=== PATIENT | male | born 1990 | race Two or more races ===

== ENCOUNTER 2024-09-30 18:34 | Emergency (ER) | payer OTHER ==
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
[2024-09-30 18:39] LABS: Glucose,Whole Blood 114 mg/dL (70-110)
[2024-09-30 18:42] VITALS: PULSE 75
[2024-09-30 18:50] LABS: Basophils # (A) 0.02 10*3/uL (0.00-0.10); Basophils % (A) 0.2 %; Eosinophils # (A) 0.20 10*3/uL (0.04-0.35); Eosinophils % (A) 2.2 %; HCT 45.0 % (39.6-50.0); HGB 15.6 g/dL (13.0-17.0); Lymphocytes # (A) 2.17 10*3/uL (0.90-5.00); Lymphocytes % (A) 23.4 %; MCH 29.9 pg (27.0-32.0); MCHC 34.7 g/dL (32.0-37.0); MCV 86.4 fL (80.0-97.0); Monocytes # (A) 0.56 10*3/uL (0.20-1.00); Monocytes % (A) 6.0 %; Neutrophils # (A) 6.30 10*3/uL (1.80-7.70); Neutrophils % (A) 68.0 %; Platelet Count 235 10*3/uL (140-440); RBC 5.21 10*6/uL (4.40-5.60); RDW 12.6 % (11.5-14.5); WBC 9.27 10*3/uL (4.50-10.00)
[2024-09-30 19:06] LABS: INR 0.9 (<1.2); Partial Thromboplastin Time 23.4 sec (22.0-30.0); Prothrombin Time 10.3 sec (10.0-12.5)
[2024-09-30 19:07] LABS: ALT 147 U/L (4-49); AST 85 U/L (17-59); African American GFR (CKD) >90 (>60 ml/min/1.73 sqM); Albumin 4.6 g/dL (3.5-5.0); Alkaline Phosphatase 91 U/L (38-126); Anion Gap 12 mmol/L; Blood Urea Nitrogen 16 mg/dL (9-20); Calcium 10.0 mg/dL (8.4-10.2); Carbon Dioxide 27 mmol/L (22-30); Chloride 104 mmol/L (98-107); Glucose 106 mg/dL (74-99); Non-African American GFR(CKD) >90 (>60 ml/min/1.73 sqM); Potassium 4.4 mmol/L (3.5-5.1); Sodium 143 mmol/L (137-145); Total Protein 7.4 g/dL (6.3-8.2)
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
[2024-09-30 19:51] LABS: Bilirubin,Urine Negative (Negative); Blood,Urine Negative (Negative); Color,Urine Colorless; Glucose,Urine (UA) Negative (Negative); Ketones,Urine Negative (Negative); Leukocyte Esterase,Urine Negative (Negative); Nitrite,Urine Negative (Negative); PH, Urine 6.5 (5.0-8.0); Protein,Urine Negative (Negative); Specific Gravity,Urine 1.022 (1.001-1.035); Urobilinogen,Urine <2.0 mg/dL (<2.0)
[2024-09-30 20:04] LABS: Barbiturate Screen,Urine Not Detected (NotDetected); Benzodiazepines Screen,Urine Not Detected (NotDetected); Opiate Screen,Urine Not Detected (NotDetected); Oxycodone Screen, Urine Not Detected (NotDetected); Phencyclidine Screen,Urine Not Detected (NotDetected); Tricyclic Antidepressant,Urine Not Detected (NotDetected); Urn Cannabinoid Scrn Detected (NotDetected)
[2024-09-30] MEDS: traMADol 50 MG STARTER PACK TAB BTL PO STA (20:14)
[2024-09-30] MEDS: DIPH,PERTUS(ACELL)TETVAC-LF 0.5 ML VIAL IM ONE (20:15)
[2024-09-30] MEDS: traMADol 50 MG TAB PO STA (20:21)
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
[2024-10-01 00:36] VITALS: BP 130/68; RESP 16; TEMP 97.8
== END 2024-09-30 20:50 | disposition home or self-care (01) ==
LOC: EC 18:34
DX: S30.810A Abrasion of lower back and pelvis, initial encounter (principal); S80.812A Abrasion, left lower leg, initial encounter; Z88.6 Allergy status to analgesic agent; V29.99XA Rider (driver) (passenger) of other motorcycle injured in unspecified traffic accident, initial encounter; Y92.410 Unspecified street and highway as the place of occurrence of the external cause
CPT/HCPCS: 99284 ×2; 90471; 36415; 93005; 86900; 86901; 80053; 83605; 84484; 85025; 85610; 85730; 86850; 81003; 80306; 80320; 72170; 73590; 71045; 72125; 70450; 71260; 74177; G0390; Q9967